=== PATIENT | female | born 2000 | race Caucasian/White ===

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

== ENCOUNTER 2019-03-02 07:41 | Emergency (ER) | payer OTHER ==
[~2019-03-02] VITALS: Ht 160 cm; Wt 57.8 kg
[2019-03-02 07:47] VITALS: BP 139/62
[2019-03-02] MEDS ORDERED: LIDOCAINE MPF 1% - 5 mL VIAL 5 ML ONE (08:15)
[2019-03-02] MEDS ORDERED: SULFAMETH/TRIMETH DS 800/160MG 1 TAB PO ONE (08:20)
[2019-03-02] MEDS ORDERED: IBUPROFEN 600 MG TAB PO ONE (08:20)
[2019-03-02] MEDS ORDERED: CEPHALEXIN 500 MG CAP PO ONE (08:20)
[2019-03-02 08:50] VITALS: BP 123/60
== END 2019-03-02 08:50 | disposition home or self-care (01) ==
LOC: MED 07:41
DX: L02.412 Cutaneous abscess of left axilla (principal)
CPT/HCPCS: 10060; 99284; J2001

== ENCOUNTER 2020-12-01 13:51 | Emergency (ER) | payer OTHER ==
[~2020-12-01] VITALS: Ht 157.5 cm; Wt 47.6 kg
[2020-12-01 14:11] VITALS: BP 111/55
--- NOTE | 2020-12-01 14:11 | NUR ---
Hand laceration s/p cutting a box with a blade at home. 0.5" laceration to 1st digit of left hand. Bleeding controlled prior to arrival. 8 pain, denies any medications prior to arrival. PMH/Meds/Sx: Denies NKA
--- NOTE | 2020-12-01 14:15 | NUR ---
Patient ambulated to lobby room.
[2020-12-01] MEDS: IBUPROFEN 400 MG TAB PO ONE (14:26)
[2020-12-01] MEDS: LIDOCAINE MPF 1% 10 MG/ML VIAL INJ ONE (14:44)
--- NOTE | 2020-12-01 15:15 | NUR ---
ERMD IN ROOM WITH PT
[2020-12-01] MEDS ORDERED: CEPH-588 PO (15:28)
[2020-12-01] MEDS ORDERED: IBUP-1842 PO (15:28)
[2020-12-01 15:48] VITALS: BP 111/55
[2020-12-01] MEDS: BACITRACIN OINT 500 UNITS/GM PKT TP ONE (15:48)
--- NOTE | 2020-12-01 15:48 | NUR ---
Patient discharged with v/s stable. Written and verbal after care instructions given and explained. Patient alert, oriented and verbalized understanding of instructions. Ambulatory with steady gait. All questions addressed prior to discharge. ID band removed. Patient advised to follow up with PMD. Rx of CEPHALEXIN, IBUPROFEN given. Patient educated on indication of medication including possible reaction and side effects. Opportunity to ask questions provided and answered.
== END 2020-12-01 15:48 | disposition home or self-care (01) ==
LOC: MED 13:51
DX: S61.012A Laceration without foreign body of left thumb without damage to nail, initial encounter (principal); Z79.899 Other long term (current) drug therapy; W45.8XXA Other foreign body or object entering through skin, initial encounter; Y93.89 Activity, other specified; Y92.89 Other specified places as the place of occurrence of the external cause; Y99.8 Other external cause status
CPT/HCPCS: 12002; 99283; J2001

== ENCOUNTER 2020-12-03 09:37 | Emergency (ER) | payer OTHER ==
[~2020-12-03] VITALS: Ht 157.5 cm; Wt 47.6 kg
[~2020-12-03 09:37] MED LIST: CEPH-588 PO; IBUP-1842 PO
[2020-12-03 09:39] VITALS: BP 105/65
--- NOTE | 2020-12-03 09:49 | NUR ---
patient ambulated to bed 6.
--- NOTE | 2020-12-03 10:00 | NUR ---
BIB SELF FOR WOUND CHECK TO RIGHT THUMB. SUTURE PLACED ON 2 DAYS AGO. 0/10 PAIN. PMH: DENIES
--- NOTE | 2020-12-03 10:00 | NUR ---
Patient being evaluated by Dr. Connelly at bedside.
[2020-12-03 10:10] VITALS: BP 105/65
== END 2020-12-03 10:10 | disposition home or self-care (01) ==
LOC: MED 09:37
DX: S61.012D Laceration without foreign body of left thumb without damage to nail, subsequent encounter (principal); Z48.00 Encounter for change or removal of nonsurgical wound dressing; W26.8XXA Contact with other sharp object(s), not elsewhere classified, initial encounter
CPT/HCPCS: 90471; 90715; 99283

== ENCOUNTER 2020-12-11 17:15 | Emergency (ER) | payer OTHER ==
[~2020-12-11] VITALS: Ht 157.5 cm; Wt 49.9 kg
[2020-12-11 17:22] VITALS: BP 98/59
--- NOTE | 2020-12-11 17:30 | NUR ---
PATIENT PRESENTS TO ED WITH LEFT THUMB SUTURE REMOVAL. PT STATES HAD THUMB SUTURED LAST WEEK, STATED THERE IS NO PAIN AT THIS MOMENT, BUT HAS BURNING SENSATION WITH TOUCH TO THE TIP OF THE THUMB . DENIES N/V/D; SKIN IS PINK/WARM/DRY; AAOX4 WITH EVEN AND STEADY GAIT; LUNGS CLEAR BL; HR EVEN AND REGULAR; PT DENIES ANY FEVER, CP, SOB, OR COUGH AT THIS TIME; PATIENT STATES PAIN OF 0/10 AT THIS TIME; VSS; PATIENT POSITIONED FOR COMFORT; HOB ELEVATED; BEDRAILS UP X2; BED DOWN. ER MD MADE AWARE OF PT STATUS.
[2020-12-11] MEDS ORDERED: BACITRACIN OINT 500 UNITS/GM PKT TP ONE (17:35)
--- NOTE | 2020-12-11 17:36 | NUR ---
APPLIED BACITRACIN ON PT LAC AND DRESSED WITH 1" GUAZE ROLL. PA NOTIFIED
[2020-12-11 17:44] VITALS: BP 98/59
== END 2020-12-11 17:44 | disposition home or self-care (01) ==
LOC: MED 17:15
DX: S61.012D Laceration without foreign body of left thumb without damage to nail, subsequent encounter (principal); Z48.00 Encounter for change or removal of nonsurgical wound dressing; X58.XXXD Exposure to other specified factors, subsequent encounter
CPT/HCPCS: 99282

== ENCOUNTER 2024-01-17 21:38 | Emergency (ER) | payer MEDICAID, OTHER ==
[~2024-01-17] VITALS: Ht 157.5 cm; Wt 50.8 kg
[2024-01-17 21:54] VITALS: BP 112/62; PULSE 71; RESP 16; TEMP 98.3; O2SAT 99
[2024-01-17 22:58] LABS: APPEARANCE,URINE CLEAR (CLEAR); BILIRUBIN,URINE NEGATIVE (NEGATIVE); BLOOD, URINE NEGATIVE (NEGATIVE); COLOR,URINE YELLOW (YELLOW); LEUKOCYTE ESTERASE ,URINE NEGATIVE (NEGATIVE); NITRITE, URINE NEGATIVE (NEGATIVE); PH,URINE 6.5 (5.0-9.0); PROTEIN,URINE NEGATIVE (NEGATIVE); UGLUCOSE NEGATIVE (NEGATIVE); UROBILINOGEN,URINE 0.2 EU/dL (0.2 - 1)
[2024-01-17 22:59] VITALS: O2SAT 98
[2024-01-17] MEDS: NACL 0.9% 1,000 ML IV ONE (23:30)
[2024-01-17 23:33] LABS: BASOPHILS # (AUTO) 0.2 K/uL (0.00-0.22); BASOPHILS % (AUTO) 2.5 % (0.0-2.0); EOSINOPHILS % (AUTO) 0.5 % (0.0-4.0); HEMATOCRIT 38.5 % (36-48); HEMOGLOBIN 13.3 g/dL (12.0-16.0); LYMPHOCYTES # (AUTO) 1.6 K/uL (2.5-16.5); LYMPHOCYTES % (AUTO) 21.6 % (20.5-51.1); MEAN CORPUSCULAR HEMOGLOBIN 31 pg (27-31); MEAN CORPUSCULAR HGB CONC 35 g/dL (33-37); MEAN CORPUSCULAR VOLUME 90.1 fL (80-94); MONOCYTES # (AUTO) 0.6 K/uL (0.8-1.0); MONOCYTES % (AUTO) 8.3 % (1.7-9.3); NEUTROPHILS # (AUTO) 4.9 K/uL (1.8-7.7); NEUTROPHILS % (AUTO) 67.1 % (42.2-75.2); PLATELET COUNT (AUTO) 257 K/uL (140-450); RED BLOOD CELL COUNT(AUTO) 4.27 MIL/uL (4.20-5.40); RED CELL DISTRIBUTION WIDTH 13.2 % (11.6-13.7); WHITE BLOOD COUNT (AUTO) 7.3 K/uL (4.8-10.8)
[2024-01-17 23:40] LABS: ANION GAP 9.7 (8-16); CALCIUM 8.5 mg/dL (8.5-10.1); CARBON DIOXIDE 29.9 mmol/L (21-32); POTASSIUM 3.6 mmol/L (3.5-5.1)
[2024-01-17] MEDS: ONDANSETRON 4 MG/2 ML VIAL IVP ONE (23:42)
[2024-01-17] MEDS: MORPHINE SULFATE 2 MG/ML SYR IVP ONE (23:44)
[2024-01-17 23:45] LABS: ALBUMIN 3.5 g/dL (3.4-5.0); BILIRUBIN,DIRECT 0.1 mg/dL (0.0-0.3); TOTAL BILIRUBIN 0.3 mg/dL (0.0-1.0); TOTAL PROTEIN, SERUM 6.4 g/dL (6.4-8.2)
[2024-01-18 01:48] VITALS: BP 102/63; PULSE 73; RESP 18; TEMP 98; O2SAT 99
== END 2024-01-18 01:48 | disposition home or self-care (01) ==
LOC: MED 21:38
DX: N83.201 Unspecified ovarian cyst, right side (principal); K59.00 Constipation, unspecified; Z79.899 Other long term (current) drug therapy
CPT/HCPCS: 36415; 74177; 80048; 80076; 81003; 81025; 83690; 85025; 96361; 96374; 96375; 99285; J2270; J2405; J7030; Q9967